=== PATIENT | male | born 2000 | race Hispanic/Latino ===

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

== ENCOUNTER 2021-02-15 10:37 | Emergency (ER) | payer OTHER ==
[2021-02-15 12:51] VITALS: BP 130/79
== END 2021-02-15 12:57 | disposition home or self-care (01) ==
LOC: ED 10:37
DX: S90.31XA Contusion of right foot, initial encounter (principal); X58.XXXA Exposure to other specified factors, initial encounter; Y93.02 Activity, running; Y92.009 Unspecified place in unspecified non-institutional (private) residence as the place of occurrence of the external cause

== ENCOUNTER 2021-05-15 23:54 | Emergency (ER) | payer OTHER ==
[2021-05-16] MEDS ORDERED: CYCLOBENZAPRINE10 MG PO (01:37)
[2021-05-16] MEDS ORDERED: NAPROXEN500 MG PO (01:37)
[2021-05-16 01:47] VITALS: BP 152/72
== END 2021-05-16 01:48 | disposition home or self-care (01) ==
LOC: ED 23:54
DX: M47.816 Spondylosis without myelopathy or radiculopathy, lumbar region (principal)